=== PATIENT | male | born 1965 | race Caucasian/White ===

== ENCOUNTER 2019-08-30 05:19 | Day surgery (SDC) | payer OTHER ==
[2019-08-30] MEDS ORDERED: LACTATED RINGERS 1,000 ML ONE (06:03)
[2019-08-30] MEDS: LACTATED RINGERS 1,000 ML IVS ONE (07:30)
[2019-08-30] MEDS ORDERED: MIDAZOLAM INJ 2 MG/2 ML VIAL ONE (07:49)
--- NOTE | 2019-08-30 09:16 | OP ---
DATE OF PROCEDURE: 08/30/19 INDICATION: Screening colonoscopy. PROCEDURE: 1. Colonoscopy. SURGEON: Carter Quiroz MD ANESTHESIA: General. PROCEDURE: General anesthesia was induced in comfortable left lateral position. Digital rectal exam was performed, which was normal. The colonoscope was then inserted. There were significant twists in the sigmoid colon with diverticulosis, no evidence of acute inflammation. Prep was satisfactory. We ultimately reached the cecum, identifying both the terminal ileum and the appendiceal orifice. Upon withdrawal, the ascending and transverse colon were normal. In the descending colon near the rectosigmoid junction at approximately 20 cm, there was a raised, polypoid, adenomatous appearing lesion. This was the area that we had struggled a little bit before, but it appeared possibly polypus. I could not see definite edges, but it was raised and irregular, glandular at the top. Optometric Technologist biopsies were taken, 3 cc of blue dye were injected submucosally and the specimens retrieved. Upon further withdrawal, no other abnormalities were seen. Retroflexion of the scope was normal. He tolerated the procedure and was taken to Recovery to be discharged. #[id number] [facility]
[2019-08-30 09:43] VITALS: BP 132/74; TEMP 97.5; O2SAT 97
[2019-08-30] MEDS ORDERED: LIDOCAINE 1% 10 ML VIAL INJ ONE (10:00)
[2019-08-30] MEDS ORDERED: PROPOFOL 200 MG/20 ML VIAL IV ONE (10:00)
== END 2019-08-30 09:40 | disposition home or self-care (01) ==
LOC: AMB 05:19
PROVIDERS: ATTEND Surgery
DX: Z12.11 Encounter for screening for malignant neoplasm of colon (principal); K63.5 Polyp of colon; K57.30 Diverticulosis of large intestine without perforation or abscess without bleeding; G40.909 Epilepsy, unspecified, not intractable, without status epilepticus; F17.210 Nicotine dependence, cigarettes, uncomplicated; Z88.5 Allergy status to narcotic agent; Z79.899 Other long term (current) drug therapy
CPT/HCPCS: 00812; 45380; 45381; J2250; J3490; J7120